=== PATIENT | male | born 1940 | race Caucasian/White ===

== ENCOUNTER 2018-06-28 19:25 | Emergency (ER) | payer OTHER, MEDICARE ==
[~2018-06-28] VITALS: Ht 182.9 cm; Wt 93.2 kg
[2018-06-28 19:52] LABS: HEMATOCRIT 49.9 % (39.0-50.0); HEMOGLOBIN 17.3 g/dl (14.0-18.0); IMMATURE GRANULOCYTES 0.3 % (0.0-5.0); MEAN CELL VOLUME 96.5 fL CALC (80.0-100.0); MEAN CORPUSCULAR HGB 33.5 pG CALC (26.0-32.0); MEAN CORPUSCULAR HGB CONC 34.7 g/L CALC (32.0-36.0); NEUT# 7.93 thou/uL (1.82-7.42); RED BLOOD COUNT 5.17 mill/uL (4.70-6.10); RED CELL DISTRI WIDTH 14.3 % (11.5-15.5)
[2018-06-28 20:13] LABS: ALBUMIN 3.9 g/dL (3.2-5.0); BILIRUBIN, TOTAL 1.2 mg/dL (0.0-1.4); CREATININE 1.9 mg/dL (0.7-1.3); POTASSIUM 4.3 mmol/l (3.5-5.1); TOTAL PROTEIN 7.5 g/dL (6.3-8.2)
[2018-06-28] MEDS ORDERED: WARFARIN4 MG PO (20:43)
[2018-06-28] MEDS ORDERED: FUROSEMIDE40 MG PO (20:43)
[2018-06-28] MEDS ORDERED: AMIODARONE200 MG PO (20:44)
[2018-06-28] MEDS ORDERED: METOPROL TAR25 MG PO (20:45)
[2018-06-28] MEDS ORDERED: PROVENTIL0.083 % IN (20:46)
[2018-06-28 20:57] LABS: ACT PARTIAL THROMBO TIME 30.3 SECONDS (20.0-32.5); INTERNATIONAL NORMALIZED RATIO 1.9 RATIO (0.7-1.3); PROTHROMBIN TIME 19.7 SECONDS (9.0-12.5)
[2018-06-28 22:54] LABS: URINE BILIRUBIN - DIPSTICK NEGATIVE (NEGATIVE); URINE BLOOD DIPSTICK TRACE-INTACT (NEGATIVE); URINE COLOR YELLOW; URINE GLUCOSE - DIPSTICK 100 mg/dL (NEGATIVE); URINE KETONE NEGATIVE (NEGATIVE); URINE LEUK ESTERASE NEGATIVE (NEGATIVE); URINE NITRITE - DIPSTICK NEGATIVE (Negative); URINE PH 7.5 (4.5-8.0); URINE PROTEIN - DIPSTICK 30 mg/dL (NEG-TRACE); URINE UROBILINOGEN - DIPSTICK 0.2 E.U./dL (0.2)
[2018-06-28 23:11] LABS: URINE BACTERIA RARE hpf; URINE WBC 0-2 WBC/hpf (0-5)
[2018-06-29 01:16] VITALS: BP 118/68
== END 2018-06-29 01:16 | disposition short-term general hospital (02) | DRG 189 ==
LOC: ED 19:25 → ED-I 21:00 → ED 06-29 01:16
PROVIDERS: Emergency Medicine
DX: J81.1 Chronic pulmonary edema (principal); A41.9 Sepsis, unspecified organism; J18.9 Pneumonia, unspecified organism; I16.0 Hypertensive urgency; I12.9 Hypertensive chronic kidney disease with stage 1 through stage 4 chronic kidney disease, or unspecified chronic kidney disease; N18.9 Chronic kidney disease, unspecified; I48.91 Unspecified atrial fibrillation; R07.9 Chest pain, unspecified; R00.2 Palpitations; R06.02 Shortness of breath